=== PATIENT | male | born 1945 | race African-American/Black ===

== ENCOUNTER 2018-01-11 01:22 | Inpatient (IN) | payer MEDICARE, OTHER ==
[~2018-01-11] VITALS: Ht 172.7 cm; Wt 80.3 kg
[2018-01-11] MEDS ORDERED: METHYLPREDNISOLONE SOD SUCC 125 MG/2 ML VIAL IV STA (02:10)
[2018-01-11] MEDS ORDERED: IPRATROPIUM/ALBUTEROL 0.5-3(2.5)MG/3ML NEB HHN ONE (02:15)
[2018-01-11 02:26] LABS: BASOPHILS % 0.6 % (0.0-2.0); EOSINOPHILS % 4.6 % (0.0-5.0); HEMATOCRIT. 42.7 % (42.0-52.0); HEMOGLOBIN. 14.5 g/dL (14.0-18.0); LYMPHOCYTES % 10.9 % (20.0-50.0); MEAN CORPUSCULAR HEMOGLOBIN 35.2 pg (28.0-32.0); MEAN CORPUSCULAR VOLUME 103.7 fL (80.0-94.0); MEAN PLATELET VOLUME 7.5 fl (7.4-10.4); MONOCYTES % 5.5 % (2.0-8.0); NEUTROPHILS % 78.4 % (40.0-76.0); PLATELET 260 x1000/uL (130-400); RED BLOOD CELL COUNT 4.12 mill/uL (4.7-6.1)
[2018-01-11 02:30] LABS: CHLORIDE 102 mEq/L (98-107)
[2018-01-11 02:33] LABS: PROTHROMBIN TIME 9.6 sec (9.1-11.1)
[2018-01-11 04:28] LABS: CLARITY URINE CLEAR (CLEAR); COLOR URINE GREEN (YELLOW); KETONES URINE NEGATIVE (NEGATIVE); LEUKOCYTE ESTERASE URINE 1+ (NEGATIVE); NITRITE URINE NEGATIVE (NEGATIVE); OCCULT BLOOD URINE TRACE (NEGATIVE); PH URINE 6.5 (4.5-8.0); PROTEIN URINE 1+ (NEGATIVE); SPECIFIC GRAVITY URINE 1.016 (1.005-1.030); UROBILINOGEN URINE 0.2 E.U./dL (0.2-1.0)
[2018-01-11] MEDS ORDERED: IPRATROPIUM BROMIDE (0.02%) 0.5MG/2.5ML NEB HHN STA (15:09)
[2018-01-11] MEDS ORDERED: ALBUTEROL (0.083%) 2.5MG/3ML NEB HHN STA (15:09)
[2018-01-11 20:50] VITALS: BP 117/83
[2018-01-11] MEDS ORDERED: METF-414 PO (22:15)
[2018-01-11] MEDS ORDERED: CYAN50003 MT (22:29)
[2018-01-11] MEDS ORDERED: AMLO10TA80 PO (22:29)
[2018-01-11] MEDS ORDERED: CHOL100022 PO (22:29)
[2018-01-11] MEDS ORDERED: BUDE6HFA INH (22:29)
[2018-01-11] MEDS ORDERED: ATOR20TA65 PO (22:29)
[2018-01-11] MEDS ORDERED: TIOT18CA3 IH (22:29)
[2018-01-11] MEDS ORDERED: CHOL100062 PO (22:29)
[2018-01-11] MEDS: IPRATROPIUM/ALBUTEROL 0.5-3(2.5)MG/3ML NEB HHN SCH (23:38)
[2018-01-11] MEDS ORDERED: METHYLPREDNISOLONE SOD SUCC 125 MG/2 ML VIAL IV SCH (23:45)
[2018-01-12 00:24] VITALS: BP 131/78
[2018-01-12] MEDS: ATORVASTATIN CALCIUM 20MG TABLET PO SCH ×2 (01:30→20:49)
[2018-01-12 04:00] VITALS: BP 115/71
[2018-01-12] MEDS: IPRATROPIUM/ALBUTEROL 0.5-3(2.5)MG/3ML NEB HHN SCH ×4 (04:14→19:55)
[2018-01-12] MEDS ORDERED: DEXTROSE 50% WATER 50ML SYRINGE IV PRN ×2 (04:45→12:00)
[2018-01-12] MEDS: METHYLPREDNISOLONE SOD SUCC 40 MG/ML VIAL IV SCH ×3 (05:43→20:56)
[2018-01-12] MEDS ORDERED: METHYLPREDNISOLONE SOD SUCC 125 MG/2 ML VIAL IV SCH (06:00)
[2018-01-12] MEDS ORDERED: BLOOD SUGAR DIAGNOSTIC STRIP TEST SCH (07:20)
[2018-01-12 08:00] VITALS: BP 132/82
[2018-01-12] MEDS: BUDESONIDE 0.5MG/2ML NEB HHN SCH ×2 (08:17→19:54)
[2018-01-12] MEDS: CHOLECALCIFEROL (D3) 1000 UNIT TABLET PO SCH (08:57)
[2018-01-12] MEDS: METFORMIN HCL 500MG TABLET PO SCH ×2 (08:57→20:50)
[2018-01-12] MEDS: AMLODIPINE 10MG TABLET PO SCH (08:58)
[2018-01-12] MEDS ORDERED: MEDICATION NOT ON FORMULARY EA (Tiotropium Bromide (Spiriva) 18 MCG) IH SCH (09:00)
[2018-01-12] MEDS ORDERED: MEDICATION NOT ON FORMULARY EA (Metformin Hcl 500 MG) PO SCH (09:00)
[2018-01-12] MEDS ORDERED: MEDICATION NOT ON FORMULARY EA (Budesonide/Formoterol Fumarate (Symbicort 160/4.5 Mcg In INH SCH (09:00)
[2018-01-12 12:00] VITALS: BP 123/78
[2018-01-12] MEDS: BLOOD SUGAR DIAGNOSTIC STRIP TEST SCH ×2 (12:20→20:50)
[2018-01-12] MEDS: INSULIN LISPRO 100 UNITS/ML SUBCUT SCH ×2 (14:01→20:50)
[2018-01-12 14:31] LABS: *AMPHETAMINES SCREEN URINE NEGATIVE (NEGATIVE); *BARBITURATES SCREEN URINE NEGATIVE (NEGATIVE); *BENZODIAZEPINES SCREEN URINE NEGATIVE (NEGATIVE); *COCAINE SCREEN URINE NEGATIVE (NEGATIVE); CANNABINOID URINE SCREEN NEGATIVE (NEGATIVE); METHADONE URINE SCREEN NEGATIVE (NEGATIVE); OPIATES URINE SCREEN NEGATIVE (NEGATIVE); PHENCYCLIDINE URINE SCREEN NEGATIVE (NEGATIVE)
[2018-01-12 16:00] VITALS: BP 117/75
[2018-01-12 20:00] VITALS: BP 116/69
[2018-01-12] MEDS: ENOXAPARIN 40MG/0.4ML SYR SUBCUT SCH (20:49)
[2018-01-13] VITALS: BP 118/74
[2018-01-13] MEDS: IPRATROPIUM/ALBUTEROL 0.5-3(2.5)MG/3ML NEB HHN PRN ×2 (01:03→04:54)
[2018-01-13 04:00] VITALS: BP 126/79
[2018-01-13] MEDS: METHYLPREDNISOLONE SOD SUCC 40 MG/ML VIAL IV SCH ×2 (05:08→13:43)
[2018-01-13] MEDS: BLOOD SUGAR DIAGNOSTIC STRIP TEST SCH ×4 (06:17→20:59)
[2018-01-13] MEDS: INSULIN LISPRO 100 UNITS/ML SUBCUT SCH ×4 (07:17→20:59)
[2018-01-13 07:50] LABS: HEMATOCRIT. 35.7 % (42.0-52.0); LYMPHOCYTES % 7.1 % (20.0-50.0); MEAN CORPUSCULAR HEMOGLOBIN 34.7 pg (28.0-32.0); MEAN CORPUSCULAR VOLUME 102.7 fL (80.0-94.0); MEAN PLATELET VOLUME 7.4 fl (7.4-10.4); MONOCYTES % 3.9 % (2.0-8.0); PLATELET 233 x1000/uL (130-400); RED BLOOD CELL COUNT 3.47 mill/uL (4.7-6.1); RED CELL DISTRIBUTION WIDTH 13.5 % (11.6-14.6)
[2018-01-13] MEDS: BUDESONIDE 0.5MG/2ML NEB HHN SCH ×2 (07:52→20:08)
[2018-01-13] MEDS: IPRATROPIUM/ALBUTEROL 0.5-3(2.5)MG/3ML NEB HHN SCH ×3 (07:52→20:07)
[2018-01-13 08:00] VITALS: BP 122/75
[2018-01-13] MEDS: METFORMIN HCL 500MG TABLET PO SCH ×2 (08:25→17:12)
[2018-01-13] MEDS: CHOLECALCIFEROL (D3) 1000 UNIT TABLET PO SCH (08:26)
[2018-01-13] MEDS: AMLODIPINE 10MG TABLET PO SCH (08:26)
[2018-01-13 12:00] VITALS: BP 111/66
[2018-01-13 16:00] VITALS: BP 99/56
[2018-01-13 16:00] LABS: CHLORIDE 99 mEq/L (98-107)
[2018-01-13] MEDS: ENOXAPARIN 40MG/0.4ML SYR SUBCUT SCH (17:13)
[2018-01-13] MEDS: PREDNISONE 20MG TABLET PO SCH (18:12)
[2018-01-13 20:00] VITALS: BP 114/64
[2018-01-13] MEDS: FLUTICASONE PROPIONATE 50MCG/SPRAY BOTTLE BOTHNSTRLS SCH (20:59)
[2018-01-13] MEDS: GUAIFENESIN 600MG ER TABLET PO SCH (20:59)
[2018-01-13] MEDS: ATORVASTATIN CALCIUM 20MG TABLET PO SCH (20:59)
[2018-01-14] VITALS: BP 108/66
[2018-01-14] MEDS: IPRATROPIUM/ALBUTEROL 0.5-3(2.5)MG/3ML NEB HHN SCH ×4 (00:52→21:05)
[2018-01-14 04:00] VITALS: BP 122/73
[2018-01-14] MEDS: BLOOD SUGAR DIAGNOSTIC STRIP TEST SCH ×4 (06:22→20:26)
[2018-01-14 06:36] LABS: HEMATOCRIT. 33.7 % (42.0-52.0); HEMOGLOBIN. 11.6 g/dL (14.0-18.0); MEAN CORPUSCULAR HEMOGLOBIN 35.2 pg (28.0-32.0); MEAN CORPUSCULAR VOLUME 102.5 fL (80.0-94.0); MEAN PLATELET VOLUME 7.6 fl (7.4-10.4); PLATELET 232 x1000/uL (130-400); RED BLOOD CELL COUNT 3.29 mill/uL (4.7-6.1); RED CELL DISTRIBUTION WIDTH 13.6 % (11.6-14.6)
[2018-01-14 07:02] LABS: CHLORIDE 99 mEq/L (98-107)
[2018-01-14] MEDS: INSULIN LISPRO 100 UNITS/ML SUBCUT SCH ×4 (07:50→20:26)
[2018-01-14 08:00] VITALS: BP 107/68
[2018-01-14] MEDS: GUAIFENESIN 600MG ER TABLET PO SCH ×2 (08:26→20:26)
[2018-01-14] MEDS: AMLODIPINE 10MG TABLET PO SCH (08:26)
[2018-01-14] MEDS: METFORMIN HCL 500MG TABLET PO SCH ×2 (08:26→19:01)
[2018-01-14] MEDS: PREDNISONE 20MG TABLET PO SCH ×2 (08:26→19:01)
[2018-01-14] MEDS: CHOLECALCIFEROL (D3) 1000 UNIT TABLET PO SCH (08:26)
[2018-01-14] MEDS: FLUTICASONE PROPIONATE 50MCG/SPRAY BOTTLE BOTHNSTRLS SCH ×2 (08:27→20:26)
[2018-01-14] MEDS: BUDESONIDE 0.5MG/2ML NEB HHN SCH ×2 (08:34→21:05)
[2018-01-14] MEDS ORDERED: TERBUTALINE SULFATE 1MG/ML VIAL SUBCUT SCH (09:15)
[2018-01-14 13:01] VITALS: BP 116/61
[2018-01-14 16:05] VITALS: BP 107/69
[2018-01-14] MEDS: ENOXAPARIN 40MG/0.4ML SYR SUBCUT SCH (19:01)
[2018-01-14 19:39] LABS: PLATELET ESTIMATE NORMAL
[2018-01-14 20:00] VITALS: BP 118/72
[2018-01-14] MEDS: ATORVASTATIN CALCIUM 20MG TABLET PO SCH (20:26)
[2018-01-15] VITALS: BP 115/63
[2018-01-15] MEDS: IPRATROPIUM/ALBUTEROL 0.5-3(2.5)MG/3ML NEB HHN SCH ×4 (01:30→20:17)
[2018-01-15 04:00] VITALS: BP 119/79
[2018-01-15] MEDS: IPRATROPIUM/ALBUTEROL 0.5-3(2.5)MG/3ML NEB HHN PRN (05:54)
[2018-01-15] MEDS: BLOOD SUGAR DIAGNOSTIC STRIP TEST SCH ×4 (06:42→21:21)
[2018-01-15] MEDS: INSULIN LISPRO 100 UNITS/ML SUBCUT SCH ×4 (07:50→21:27)
[2018-01-15 08:00] VITALS: BP 118/68
[2018-01-15] MEDS: BUDESONIDE 0.5MG/2ML NEB HHN SCH (09:43)
[2018-01-15] MEDS: AMLODIPINE 10MG TABLET PO SCH (09:49)
[2018-01-15] MEDS: GUAIFENESIN 600MG ER TABLET PO SCH ×2 (09:49→21:26)
[2018-01-15] MEDS: METFORMIN HCL 500MG TABLET PO SCH ×2 (09:50→18:45)
[2018-01-15] MEDS: FLUTICASONE PROPIONATE 50MCG/SPRAY BOTTLE BOTHNSTRLS SCH ×2 (09:50→21:26)
[2018-01-15] MEDS: PREDNISONE 20MG TABLET PO SCH ×2 (09:50→18:45)
[2018-01-15] MEDS: CHOLECALCIFEROL (D3) 1000 UNIT TABLET PO SCH (09:54)
[2018-01-15 12:00] VITALS: BP 115/66
[2018-01-15] MEDS: LEVOFLOXACIN 250MG TABLET PO SCH (14:01)
[2018-01-15 16:00] VITALS: BP 100/55
[2018-01-15] MEDS: ENOXAPARIN 40MG/0.4ML SYR SUBCUT SCH (18:45)
[2018-01-15 20:00] VITALS: BP 116/60
[2018-01-15] MEDS: ATORVASTATIN CALCIUM 20MG TABLET PO SCH (21:26)
[2018-01-15] MEDS ORDERED: MAGNESIUM 1 G PREMIX 100 ML IV NR (21:30)
[2018-01-16] VITALS: BP 110/63
[2018-01-16] MEDS: IPRATROPIUM/ALBUTEROL 0.5-3(2.5)MG/3ML NEB HHN SCH ×2 (00:54→07:21)
[2018-01-16 04:00] VITALS: BP 115/58
[2018-01-16] MEDS: IPRATROPIUM/ALBUTEROL 0.5-3(2.5)MG/3ML NEB HHN PRN (05:44)
[2018-01-16] MEDS: BLOOD SUGAR DIAGNOSTIC STRIP TEST SCH ×2 (07:20→12:14)
[2018-01-16] MEDS: INSULIN LISPRO 100 UNITS/ML SUBCUT SCH ×2 (07:50→12:15)
[2018-01-16 08:00] VITALS: BP 116/66
[2018-01-16] MEDS ORDERED: CYANOCOBALAMIN 1000MCG TABLET PO SCH (09:00)
[2018-01-16] MEDS: PREDNISONE 20MG TABLET PO SCH (10:16)
[2018-01-16] MEDS: METFORMIN HCL 500MG TABLET PO SCH (10:17)
[2018-01-16] MEDS: GUAIFENESIN 600MG ER TABLET PO SCH (10:17)
[2018-01-16] MEDS: LEVOFLOXACIN 250MG TABLET PO SCH (10:17)
[2018-01-16] MEDS: AMLODIPINE 10MG TABLET PO SCH (10:18)
[2018-01-16] MEDS: CHOLECALCIFEROL (D3) 1000 UNIT TABLET PO SCH (10:18)
[2018-01-16] MEDS: FLUTICASONE PROPIONATE 50MCG/SPRAY BOTTLE BOTHNSTRLS SCH (10:20)
[2018-01-16 13:12] VITALS: BP 115/74
== END 2018-01-16 14:05 | disposition home or self-care (01) | DRG 189 ==
LOC: ER 01:22 → 6WST 04:27 → EDBEDREQ 04:29 → ENRESERV 19:54
PROVIDERS: ADMIT Internal Medicine; ATTEND Internal Medicine
DX: J96.00 Acute respiratory failure, unspecified whether with hypoxia or hypercapnia (principal); J44.1 Chronic obstructive pulmonary disease with (acute) exacerbation; N39.0 Urinary tract infection, site not specified; I10 Essential (primary) hypertension; L89.310 Pressure ulcer of right buttock, unstageable; L89.150 Pressure ulcer of sacral region, unstageable; E78.5 Hyperlipidemia, unspecified; J00 Acute nasopharyngitis [common cold]; E11.40 Type 2 diabetes mellitus with diabetic neuropathy, unspecified; E78.00 Pure hypercholesterolemia, unspecified; B96.1 Klebsiella pneumoniae [K. pneumoniae] as the cause of diseases classified elsewhere; Z79.51 Long term (current) use of inhaled steroids; Z79.84 Long term (current) use of oral hypoglycemic drugs; Z87.891 Personal history of nicotine dependence; Z88.2 Allergy status to sulfonamides
CPT/HCPCS: 36415; 71045; 80048; 80305; 82962; 83880; 84134; 84484; 87077; 87186; 87804; 93005; 94640; 96374; 99285; A6261; J1650; J1815; J2920; J2930; J3105; J3475; J7040; J7512; J7611; J7620; J7626

== ENCOUNTER 2018-01-23 00:41 | Emergency (ER) | payer MEDICARE, OTHER ==
[~2018-01-23] VITALS: Ht 172.7 cm; Wt 57.0 kg
[~2018-01-23 00:41] MED LIST: AMLO10TA80 PO; ATOR20TA65 PO; BUDE6HFA INH; CHOL100022 PO; CYAN50003 MT; METF-414 PO; TIOT18CA3 IH
[2018-01-23] MEDS ORDERED: ALBUTEROL (0.083%) 2.5MG/3ML NEB HHN STA (01:34)
[2018-01-23] MEDS ORDERED: IPRATROPIUM BROMIDE (0.02%) 0.5MG/2.5ML NEB HHN STA (01:34)
[2018-01-23] MEDS ORDERED: MAGNESIUM 2 G PREMIX 50 ML IV ONE (01:45)
[2018-01-23 02:21] LABS: HEMATOCRIT 35.5 % (42.0-52.0); HEMOGLOBIN 12.1 g/dL (14.0-18.0); MEAN CORPUSCULAR HEMOGLOBIN 35.1 pg (28.0-32.0); MEAN CORPUSCULAR VOLUME 103.2 fL (80.0-94.0); PLATELET 222 x1000/uL (130-400); RED BLOOD CELL COUNT 3.44 mill/uL (4.7-6.1); RED CELL DISTRIBUTION WIDTH 14.2 % (11.6-14.6)
[2018-01-23 02:26] LABS: CHLORIDE 103 mEq/L (98-107)
[2018-01-23 02:32] LABS: D-DIMER 0.98 mg/L FEU (<0.50); PARTIAL THROMBOPLASTIN TIME 23.6 sec (23.4-31.0)
[2018-01-23 06:18] VITALS: BP 112/75
[2018-01-23] MEDS ORDERED: IOHEXOL-350 100 ML BOTTLE ONE (06:35)
== END 2018-01-23 06:24 | disposition home or self-care (01) ==
LOC: EDBD → ER 02:26
DX: J44.1 Chronic obstructive pulmonary disease with (acute) exacerbation (principal); E11.9 Type 2 diabetes mellitus without complications; E78.00 Pure hypercholesterolemia, unspecified; I10 Essential (primary) hypertension; N39.0 Urinary tract infection, site not specified; Z87.891 Personal history of nicotine dependence; Z88.2 Allergy status to sulfonamides; Z79.899 Other long term (current) drug therapy
CPT/HCPCS: 36415; 71275; 80053; 84484; 85027; 85379; 85610; 85730; 94640; 96365; 96366; 99284; J3475; Q9967; J7611

== ENCOUNTER 2018-02-08 05:54 | Inpatient (IN) | payer MEDICARE, OTHER ==
[~2018-02-08] VITALS: Ht 167.6 cm; Wt 81.6 kg
[2018-02-08] MEDS ORDERED: METHYLPREDNISOLONE SOD SUCC 125 MG/2 ML VIAL IV STA (07:01)
[2018-02-08] MEDS ORDERED: IPRATROPIUM/ALBUTEROL 0.5-3(2.5)MG/3ML NEB HHN ONE (07:15)
[2018-02-08 07:55] LABS: BASOPHILS % 0.4 % (0.0-2.0); CHLORIDE 103 mEq/L (98-107); EOSINOPHILS % 0.2 % (0.0-5.0); HEMATOCRIT. 39.6 % (42.0-52.0); HEMOGLOBIN. 13.2 g/dL (14.0-18.0); LYMPHOCYTES % 16.5 % (20.0-50.0); MEAN CORPUSCULAR HEMOGLOBIN 34.7 pg (28.0-32.0); MONOCYTES % 12.3 % (2.0-8.0); NEUTROPHILS % 70.6 % (40.0-76.0); PLATELET 238 x1000/uL (130-400); RED BLOOD CELL COUNT 3.81 mill/uL (4.7-6.1)
[2018-02-08 07:58] LABS: PARTIAL THROMBOPLASTIN TIME 26.3 sec (23.4-31.0); PROTHROMBIN TIME 9.9 sec (9.1-11.1)
[2018-02-08 08:52] LABS: BG BASE EXCESS 1.4 mmol/L (-2.0-2.0); BG CARBOXYHEMOGLOBIN 0.9 % (0.5-1.5); BG DEOXYHEMOGLOBIN 3.1 % (0.0-5.0); BG FRACTION INSPIRED OXYGEN 28; BG HCO3 ACT 27.2 mmol/L (22.0-26.0); BG METHEMOGLOBIN 0.3 % (0.0-1.5); BG OXYGEN SATURATION 96.9 % (92.0-98.5); BG OXYHEMOGLOBIN 95.7 % (94.0-97.0); BG PCO2 47.8 mmHg (35.0-45.0); BG PH 7.373 (7.350-7.450); BG PO2 98.9 mmHg (75.0-100.0); BG SAMPLE SITE RIGHT BRACHIAL; BG TOTAL HEMOGLOBIN 13.3 g/dL (12.0-18.0); BG VENT MODE NASAL CANNULA
[2018-02-08] MEDS ORDERED: CLONIDINE 0.1MG TABLET PO PRN (10:30)
[2018-02-08] MEDS ORDERED: LORAZEPAM 2MG/ML CPJ IV PRN (10:30)
[2018-02-08] MEDS ORDERED: ACETAMINOPHEN 325MG TABLET PO PRN (10:30)
[2018-02-08] MEDS ORDERED: MORPHINE SULFATE 2 MG/ML CPJ (NOT FOR IM USE) IV PRN (10:30)
[2018-02-08] MEDS ORDERED: DOCUSATE SODIUM 100MG CAPSULE PO PRN (10:30)
[2018-02-08] MEDS ORDERED: MAGNESIUM/ALUMINUM HYDROXIDE/SIMETHICONE 30ML UDC PO PRN (10:30)
[2018-02-08] MEDS ORDERED: NA PHOS,M-B/NA PHOS,DI-BA ENEMA 118ML PR PRN (10:30)
[2018-02-08] MEDS ORDERED: ONDANSETRON HCL 4MG/2ML INJ IV PRN (10:30)
[2018-02-08] MEDS ORDERED: DIPHENHYDRAMINE 50MG/ML VIAL IV PRN (10:30)
[2018-02-08 14:00] VITALS: BP 128/83
[2018-02-08] MEDS ORDERED: MORPHINE SULFATE 10MG/5ML ORAL SOLN UDC PO PRN (14:00)
[2018-02-08] MEDS: METHYLPREDNISOLONE SOD SUCC 125 MG/2 ML VIAL IV SCH ×2 (14:34→20:03)
[2018-02-08] MEDS: ASPIRIN 81MG EC TABLET PO SCH (14:34)
[2018-02-08] MEDS: ENOXAPARIN 40MG/0.4ML SYR SUBCUT SCH (14:35)
[2018-02-08 14:56] VITALS: BP 128/83
[2018-02-08] MEDS ORDERED: LEVOFLOXACIN 500MG PREMIX 100 ML IV SCH (15:00)
[2018-02-08] MEDS ORDERED: DEXTROSE 50% WATER 50ML SYRINGE IV PRN (15:45)
[2018-02-08 16:00] VITALS: BP 118/78
[2018-02-08] MEDS ORDERED: INFLUENZA VIRUS VACCINE(AFLURIA) 0.5ML SYR IM ONE (16:15)
[2018-02-08] MEDS: IPRATROPIUM/ALBUTEROL 0.5-3(2.5)MG/3ML NEB INH PRN (17:07)
[2018-02-08] MEDS: BLOOD SUGAR DIAGNOSTIC STRIP TEST SCH ×2 (17:09→20:35)
[2018-02-08] MEDS: INSULIN LISPRO 100 UNITS/ML SUBCUT SCH ×2 (17:20→21:18)
[2018-02-08 17:59] LABS: CHLORIDE 100 mEq/L (98-107)
[2018-02-08 20:00] VITALS: BP 115/69
[2018-02-08] MEDS: HYDROCODONE/ACETAMINOPHEN 5/325MG TABLET PO PRN (20:04)
[2018-02-08] MEDS: ATORVASTATIN CALCIUM 20MG TABLET PO SCH (20:05)
[2018-02-09] VITALS: BP 126/82
[2018-02-09] MEDS: IPRATROPIUM/ALBUTEROL 0.5-3(2.5)MG/3ML NEB INH PRN ×3 (00:54→12:07)
[2018-02-09] MEDS: METHYLPREDNISOLONE SOD SUCC 125 MG/2 ML VIAL IV SCH ×2 (02:26→09:44)
[2018-02-09 04:00] VITALS: BP 127/86
[2018-02-09] MEDS: BLOOD SUGAR DIAGNOSTIC STRIP TEST SCH ×4 (05:56→20:07)
[2018-02-09 05:58] LABS: BASOPHILS % 0.1 % (0.0-2.0); HEMATOCRIT. 36.1 % (42.0-52.0); HEMOGLOBIN. 12.1 g/dL (14.0-18.0); LYMPHOCYTES % 7.8 % (20.0-50.0); MEAN CORPUSCULAR HEMOGLOBIN 34.8 pg (28.0-32.0); MEAN CORPUSCULAR VOLUME 103.8 fL (80.0-94.0); MEAN PLATELET VOLUME 7.6 fl (7.4-10.4); MONOCYTES % 3.5 % (2.0-8.0); NEUTROPHILS % 88.6 % (40.0-76.0); PLATELET 240 x1000/uL (130-400); RED BLOOD CELL COUNT 3.47 mill/uL (4.7-6.1); RED CELL DISTRIBUTION WIDTH 13.5 % (11.6-14.6)
[2018-02-09 06:24] LABS: CHLORIDE 98 mEq/L (98-107)
[2018-02-09 06:36] LABS: HDL CHOLESTEROL 46 mg/dL (40-59); T4 FREE 1.08 ng/dL (0.76-1.46)
[2018-02-09 06:37] LABS: LDL CHOLESTEROL 81 mg/dL (5-100)
[2018-02-09] MEDS: INSULIN LISPRO 100 UNITS/ML SUBCUT SCH ×4 (06:53→20:18)
[2018-02-09 08:00] VITALS: BP 122/78
[2018-02-09] MEDS: ENOXAPARIN 40MG/0.4ML SYR SUBCUT SCH (09:44)
[2018-02-09] MEDS: ASPIRIN 81MG EC TABLET PO SCH (09:44)
[2018-02-09 12:00] VITALS: BP 136/82
[2018-02-09] MEDS ORDERED: ALBUTEROL (0.5%) 2.5MG/0.5ML NEB HHN PRN (12:45)
[2018-02-09] MEDS: FLUTICASONE PROPIONATE 50MCG/SPRAY BOTTLE BOTHNSTRLS SCH (14:34)
[2018-02-09] MEDS: ALBUTEROL (0.083%) 2.5MG/3ML NEB HHN SCH ×3 (15:03→21:10)
[2018-02-09] MEDS: ACETYLCYSTEINE 100MG/ML 10% VIAL 4ML INH SCH (15:03)
[2018-02-09 16:00] VITALS: BP 107/73
[2018-02-09 16:48] LABS: CREATINE KINASE 189 IU/L (39-308)
[2018-02-09] MEDS: THEOPHYLLINE ANHYDROUS 80 MG/15 ML 120ML PO SCH (17:22)
[2018-02-09] MEDS: LEVOFLOXACIN 500MG PREMIX 100 ML IV SCH (17:22)
[2018-02-09] MEDS: METHYLPREDNISOLONE SOD SUCC 40 MG/ML VIAL IV SCH (17:22)
[2018-02-09 20:00] VITALS: BP 129/82
[2018-02-09] MEDS: ATORVASTATIN CALCIUM 20MG TABLET PO SCH (20:18)
[2018-02-09] MEDS: OXYMETAZOLINE HCL NASAL SPRAY 15ML BOTHNSTRLS SCH (20:18)
[2018-02-10] VITALS (7 sets, daily range): BP systolic 110–137; BP diastolic 68–86
[2018-02-10] MEDS: HYDROCODONE/ACETAMINOPHEN 5/325MG TABLET PO PRN ×2 (00:16→21:18)
[2018-02-10] MEDS: THEOPHYLLINE ANHYDROUS 80 MG/15 ML 120ML PO SCH ×4 (00:17→17:10)
[2018-02-10 00:40] LABS: CREATINE KINASE 188 IU/L (39-308)
[2018-02-10 00:41] LABS: CREATINE KINASE MB FRACTION 5.7 ng/mL (0.5-3.6)
[2018-02-10] MEDS: ACETYLCYSTEINE 100MG/ML 10% VIAL 4ML INH SCH ×3 (00:47→15:09)
[2018-02-10] MEDS: ALBUTEROL (0.083%) 2.5MG/3ML NEB HHN SCH ×5 (00:47→20:49)
[2018-02-10] MEDS: METHYLPREDNISOLONE SOD SUCC 40 MG/ML VIAL IV SCH ×3 (01:54→17:10)
[2018-02-10] MEDS: BLOOD SUGAR DIAGNOSTIC STRIP TEST SCH ×4 (05:50→21:12)
[2018-02-10] MEDS: INSULIN LISPRO 100 UNITS/ML SUBCUT SCH ×4 (05:53→21:14)
[2018-02-10 07:59] LABS: CREATINE KINASE 188 IU/L (39-308)
[2018-02-10 08:00] LABS: CREATINE KINASE MB FRACTION 5.7 ng/mL (0.5-3.6)
[2018-02-10] MEDS ORDERED: MAGNESIUM 2 G PREMIX 50 ML IV SCH (08:30)
[2018-02-10] MEDS: FLUTICASONE PROPIONATE 50MCG/SPRAY BOTTLE BOTHNSTRLS SCH (08:50)
[2018-02-10] MEDS: ENOXAPARIN 40MG/0.4ML SYR SUBCUT SCH (09:19)
[2018-02-10] MEDS: ASPIRIN 81MG EC TABLET PO SCH (09:19)
[2018-02-10] MEDS: OXYMETAZOLINE HCL NASAL SPRAY 15ML BOTHNSTRLS SCH ×2 (09:19→21:17)
[2018-02-10] MEDS: LEVOFLOXACIN 500MG PREMIX 100 ML IV SCH (17:10)
[2018-02-10] MEDS: CARVEDILOL 3.125 MG TABLET PO SCH (21:12)
[2018-02-10] MEDS: ATORVASTATIN CALCIUM 20MG TABLET PO SCH (21:12)
[2018-02-11 00:43] VITALS: BP 114/85
[2018-02-11] MEDS: ALBUTEROL (0.083%) 2.5MG/3ML NEB HHN SCH ×6 (00:52→20:52)
[2018-02-11] MEDS: ACETYLCYSTEINE 100MG/ML 10% VIAL 4ML INH SCH ×3 (00:52→15:26)
[2018-02-11] MEDS: THEOPHYLLINE ANHYDROUS 80 MG/15 ML 120ML PO SCH ×4 (01:02→17:12)
[2018-02-11] MEDS: METHYLPREDNISOLONE SOD SUCC 40 MG/ML VIAL IV SCH ×3 (01:02→17:12)
[2018-02-11 04:00] VITALS: BP 102/75
[2018-02-11] MEDS: BLOOD SUGAR DIAGNOSTIC STRIP TEST SCH ×4 (05:59→20:30)
[2018-02-11] MEDS: INSULIN LISPRO 100 UNITS/ML SUBCUT SCH ×4 (05:59→21:06)
[2018-02-11] MEDS: FLUTICASONE PROPIONATE 50MCG/SPRAY BOTTLE BOTHNSTRLS SCH (09:00)
[2018-02-11] MEDS: ENOXAPARIN 40MG/0.4ML SYR SUBCUT SCH (09:00)
[2018-02-11] MEDS: OXYMETAZOLINE HCL NASAL SPRAY 15ML BOTHNSTRLS SCH ×2 (09:13→21:10)
[2018-02-11] MEDS: ASPIRIN 81MG EC TABLET PO SCH (09:14)
[2018-02-11] MEDS: CARVEDILOL 3.125 MG TABLET PO SCH ×2 (09:15→20:34)
[2018-02-11] MEDS: LOSARTAN POTASSIUM 50 MG TABLET PO SCH (09:15)
[2018-02-11] MEDS: HYDROCODONE/ACETAMINOPHEN 5/325MG TABLET PO PRN ×2 (11:49→17:43)
[2018-02-11] MEDS: GUAIFENESIN 200MG/10ML SUGAR FREE UDC PO PRN ×2 (11:57→17:43)
[2018-02-11 11:59] VITALS: BP 112/68
[2018-02-11 15:40] VITALS: BP 90/56
[2018-02-11] MEDS ORDERED: REGADENOSON 0.4 MG/5 ML IV ONE (16:30)
[2018-02-11] MEDS: LEVOFLOXACIN 500MG PREMIX 100 ML IV SCH (17:13)
[2018-02-11 20:00] VITALS: BP 102/54
[2018-02-11] MEDS: ATORVASTATIN CALCIUM 20MG TABLET PO SCH (20:33)
[2018-02-12] VITALS: BP 113/76
[2018-02-12] MEDS: THEOPHYLLINE ANHYDROUS 80 MG/15 ML 120ML PO SCH ×4 (00:19→16:34)
[2018-02-12] MEDS: GUAIFENESIN 200MG/10ML SUGAR FREE UDC PO PRN ×2 (00:24→12:48)
[2018-02-12] MEDS: ALBUTEROL (0.083%) 2.5MG/3ML NEB HHN SCH ×6 (00:58→20:15)
[2018-02-12] MEDS: ACETYLCYSTEINE 100MG/ML 10% VIAL 4ML INH SCH (00:58)
[2018-02-12] MEDS: METHYLPREDNISOLONE SOD SUCC 40 MG/ML VIAL IV SCH (02:54)
[2018-02-12 04:00] VITALS: BP 111/70
[2018-02-12] MEDS: BLOOD SUGAR DIAGNOSTIC STRIP TEST SCH ×4 (07:22→21:25)
[2018-02-12] MEDS: INSULIN LISPRO 100 UNITS/ML SUBCUT SCH ×4 (07:23→21:25)
[2018-02-12 08:00] VITALS: BP 115/79
[2018-02-12] MEDS: LOSARTAN POTASSIUM 50 MG TABLET PO SCH ×2 (09:00→09:17)
[2018-02-12] MEDS: ASPIRIN 81MG EC TABLET PO SCH ×2 (09:00→12:48)
[2018-02-12] MEDS: CARVEDILOL 3.125 MG TABLET PO SCH ×2 (09:00→20:42)
[2018-02-12] MEDS: FLUTICASONE PROPIONATE 50MCG/SPRAY BOTTLE BOTHNSTRLS SCH (09:20)
[2018-02-12] MEDS: ENOXAPARIN 40MG/0.4ML SYR SUBCUT SCH (09:21)
[2018-02-12] MEDS: PREDNISONE 20MG TABLET PO SCH ×3 (09:30→16:34)
[2018-02-12] MEDS: GUAIFENESIN 600MG ER TABLET PO SCH ×3 (09:30→21:13)
[2018-02-12] MEDS ORDERED: REGADENOSON 0.4 MG/5 ML IV ONE (10:48)
[2018-02-12 12:30] VITALS: BP 102/71
[2018-02-12] MEDS: OXYMETAZOLINE HCL NASAL SPRAY 15ML BOTHNSTRLS SCH ×2 (12:57→21:12)
[2018-02-12] MEDS: LEVOFLOXACIN 500MG PREMIX 100 ML IV SCH (16:34)
[2018-02-12 20:00] VITALS: BP 114/79
[2018-02-12] MEDS: ATORVASTATIN CALCIUM 20MG TABLET PO SCH (21:13)
[2018-02-13] VITALS: BP 112/73
[2018-02-13] MEDS: ALBUTEROL (0.083%) 2.5MG/3ML NEB HHN SCH ×4 (00:02→12:38)
[2018-02-13] MEDS: THEOPHYLLINE ANHYDROUS 80 MG/15 ML 120ML PO SCH ×3 (00:45→13:04)
[2018-02-13] MEDS: GUAIFENESIN 200MG/10ML SUGAR FREE UDC PO PRN ×2 (01:33→08:51)
[2018-02-13 04:00] VITALS: BP 126/88
[2018-02-13 05:45] LABS: HEMATOCRIT. 41.4 % (42.0-52.0); HEMOGLOBIN. 13.9 g/dL (14.0-18.0); MEAN CORPUSCULAR HEMOGLOBIN 34.4 pg (28.0-32.0); MEAN CORPUSCULAR VOLUME 102.7 fL (80.0-94.0); MEAN PLATELET VOLUME 7.4 fl (7.4-10.4); PLATELET 313 x1000/uL (130-400); RED BLOOD CELL COUNT 4.03 mill/uL (4.7-6.1); RED CELL DISTRIBUTION WIDTH 13.3 % (11.6-14.6)
[2018-02-13 05:48] LABS: CHLORIDE 95 mEq/L (98-107)
[2018-02-13] MEDS: INSULIN LISPRO 100 UNITS/ML SUBCUT SCH ×2 (05:51→13:04)
[2018-02-13] MEDS: BLOOD SUGAR DIAGNOSTIC STRIP TEST SCH ×2 (05:51→11:58)
[2018-02-13 07:50] VITALS: BP 120/85
[2018-02-13] MEDS: OXYMETAZOLINE HCL NASAL SPRAY 15ML BOTHNSTRLS SCH (08:51)
[2018-02-13] MEDS: ENOXAPARIN 40MG/0.4ML SYR SUBCUT SCH (08:51)
[2018-02-13] MEDS: PREDNISONE 20MG TABLET PO SCH (08:52)
[2018-02-13] MEDS: CARVEDILOL 3.125 MG TABLET PO SCH (08:52)
[2018-02-13] MEDS: LOSARTAN POTASSIUM 50 MG TABLET PO SCH (08:52)
[2018-02-13] MEDS: ASPIRIN 81MG EC TABLET PO SCH (08:52)
[2018-02-13] MEDS: GUAIFENESIN 600MG ER TABLET PO SCH (08:52)
[2018-02-13 12:00] VITALS: BP 104/68
[2018-02-13 13:27] VITALS: BP 104/68
[2018-02-13 13:32] LABS: ATYPICAL LYMPHOCYTES 1
== END 2018-02-13 15:00 | disposition home or self-care (01) | DRG 177 ==
LOC: ER 05:54 → 8WST 07:06 → EDBEDREQ 12:28 → ENRESERV 12:35
PROVIDERS: ADMIT Internal Medicine; ATTEND Internal Medicine
DX: J69.0 Pneumonitis due to inhalation of food and vomit (principal); J96.00 Acute respiratory failure, unspecified whether with hypoxia or hypercapnia; I50.23 Acute on chronic systolic (congestive) heart failure; J44.0 Chronic obstructive pulmonary disease with (acute) lower respiratory infection; R65.10 Systemic inflammatory response syndrome (SIRS) of non-infectious origin without acute organ dysfunction; E44.1 Mild protein-calorie malnutrition; E87.2 Acidosis; I42.9 Cardiomyopathy, unspecified; J44.1 Chronic obstructive pulmonary disease with (acute) exacerbation; I11.0 Hypertensive heart disease with heart failure; E11.9 Type 2 diabetes mellitus without complications; J20.9 Acute bronchitis, unspecified; E78.5 Hyperlipidemia, unspecified; F17.200 Nicotine dependence, unspecified, uncomplicated; I25.10 Atherosclerotic heart disease of native coronary artery without angina pectoris; Z68.29 Body mass index [BMI] 29.0-29.9, adult; Z88.1 Allergy status to other antibiotic agents
CPT/HCPCS: 36415; 36600; 71045; 78452; 80048; 80061; 82375; 82550; 82553; 82805; 82962; 83036; 83880; 84439; 84443; 84484; 85379; 93005; 93017; 93306; 93970; 94640; 96374; 99291; A6261; A9500; J1200; J1650; J1815; J1956; J2785; J2920; J2930; J3475; J7512; J7608; J7611; J7620

== ENCOUNTER 2024-05-14 17:28 | Inpatient (IN) | payer MEDICARE ==
[~2024-05-14] VITALS: Ht 167.6 cm; Wt 57.6 kg
[~2024-05-14 17:28] MED LIST changes: -CYAN50003 MT; +CYAN50007 MT; +LEVO-65 MT; +P20 MT; +PRED5TAB48 PO
[2024-05-14 18:17] LABS: BASOPHILS % 0.4 % (0.0-2.0); DIFFERENTIAL COMMENT 0; EOSINOPHILS % 0.1 % (0.0-5.0); HEMATOCRIT. 36.9 % (42.0-52.0); HEMOGLOBIN. 11.7 g/dL (14.0-18.0); LYMPHOCYTES % 7.9 % (20.0-50.0); MEAN CORPUSCULAR HEMOGLOBIN 32.2 pg (28.0-32.0); MEAN CORPUSCULAR HGB CONC 31.7 g/dL (31.0-37.0); MEAN CORPUSCULAR VOLUME 101.6 fL (80.0-94.0); MEAN PLATELET VOLUME 7.6 fl (7.4-10.4); NEUTROPHILS % 86.6 % (40.0-76.0); PLATELET 288 x1000/uL (130-400); RED BLOOD CELL COUNT 3.63 mill/uL (4.7-6.1); RED CELL DISTRIBUTION WIDTH 16.3 % (11.6-14.6); WHITE BLOOD COUNT 8.8 x1000/uL (4.5-11.0)
[2024-05-14 18:23] LABS: CHLORIDE 92 mEq/L (98-107); POTASSIUM 5.2 mEq/L (3.5-5.1); SODIUM 127 mEq/L (136-145)
[2024-05-14 18:24] LABS: CARBON DIOXIDE 24 mEq/L (21-32)
[2024-05-14 18:25] LABS: CALCIUM 9.7 mg/dL (8.7-10.4)
[2024-05-14 18:29] LABS: CREATININE 1.1 mg/dL (0.6-1.3)
[2024-05-14 18:30] LABS: UREA NITROGEN BLOOD 12 mg/dL (9-23)
[2024-05-14 18:31] LABS: TROPONIN I HIGH SENSITIVITY 14 ng/L (3.0-53)
[2024-05-14 18:45] LABS: GLUCOSE 419 mg/dL (70-105)
[2024-05-14] MEDS: METOPROLOL TARTRATE 50MG TABLET PO ONE (19:23)
[2024-05-14] MEDS: METOPROLOL TARTRATE 5MG/5ML VIAL IV ONE (19:23)
[2024-05-14] MEDS: ENOXAPARIN 80MG/0.8ML SYR SUBCUT ONE (23:56)
[2024-05-15] VITALS (11 sets, daily range): BP systolic 75–112; BP diastolic 54–85; PULSE 78–108; RESP 18–26; TEMP 36.6–36.9; O2SAT 96–100
[2024-05-15] MEDS: BLOOD SUGAR DIAGNOSTIC STRIP TEST SCH (07:30)
[2024-05-15] MEDS ORDERED: IPRATROPIUM/ALBUTEROL 0.5-3(2.5)MG/3ML NEB HHN SCH (08:00)
[2024-05-15] MEDS: INSULIN LISPRO 100 UNITS/ML SUBCUT SCH (08:45)
[2024-05-15] MEDS: METFORMIN HCL 500MG TABLET PO SCH (08:46)
[2024-05-15] MEDS: PREDNISONE 20MG TABLET PO SCH (08:46)
[2024-05-15] MEDS ORDERED: NALOXONE HCL 0.4MG/ML VIAL IV PRN (10:00)
[2024-05-15] MEDS: SODIUM CHLORIDE 0.9% 1,000 ML IV SCH (10:20)
[2024-05-15] MEDS: TRAMADOL 50MG TABLET PO PRN (10:25)
[2024-05-15] MEDS: INSULIN GLARGINE 100 UNITS/ML SUBCUT SCH (10:29)
[2024-05-15] MEDS: AMIODARONE 200MG TABLET PO SCH (11:00)
[2024-05-15 11:27] LABS: BASOPHILS % 0.3 % (0.0-2.0); EOSINOPHILS % 0.7 % (0.0-5.0); HEMATOCRIT. 35.4 % (42.0-52.0); HEMOGLOBIN. 11.3 g/dL (14.0-18.0); LYMPHOCYTES % 10.4 % (20.0-50.0); MEAN CORPUSCULAR HEMOGLOBIN 31.9 pg (28.0-32.0); MEAN CORPUSCULAR HGB CONC 31.9 g/dL (31.0-37.0); MEAN PLATELET VOLUME 7.2 fl (7.4-10.4); MONOCYTES % 5.5 % (2.0-8.0); NEUTROPHILS % 83.1 % (40.0-76.0); PLATELET 276 x1000/uL (130-400); RED BLOOD CELL COUNT 3.54 mill/uL (4.7-6.1); RED CELL DISTRIBUTION WIDTH 15.9 % (11.6-14.6); WHITE BLOOD COUNT 7.7 x1000/uL (4.5-11.0)
[2024-05-15 11:46] LABS: CHLORIDE 100 mEq/L (98-107); POTASSIUM 3.9 mEq/L (3.5-5.1); SODIUM 136 mEq/L (136-145)
[2024-05-15 11:47] LABS: CARBON DIOXIDE 28 mEq/L (21-32)
[2024-05-15 11:48] LABS: CALCIUM 9.4 mg/dL (8.7-10.4)
[2024-05-15 11:52] LABS: CREATININE 0.9 mg/dL (0.6-1.3)
[2024-05-15 11:53] LABS: LDL CHOLESTEROL 74 mg/dL (5-100); TRIGLYCERIDE 105 mg/dL (0-150); UREA NITROGEN BLOOD 11 mg/dL (9-23)
[2024-05-15 11:55] LABS: CHOLESTEROL 142 mg/dL (<200); HDL CHOLESTEROL 38 mg/dL (>55)
[2024-05-15] MEDS: DIGOXIN 500MCG/2ML AMP IV NR (12:56)
[2024-05-15 12:57] LABS: GLUCOSE 70 mg/dL (70-105)
[2024-05-15] MEDS: ENOXAPARIN 60MG/0.6ML SYR SUBCUT SCH (12:59)
[2024-05-15] MEDS: IPRATROPIUM BROMIDE (0.02%) 0.5MG/2.5ML NEB HHN SCH (14:57)
[2024-05-15 17:03] LABS: CLARITY URINE TURBID (CLEAR); COLOR URINE YELLOW (YELLOW); GLUCOSE URINE 3+ (NEGATIVE); KETONES URINE NEGATIVE (NEGATIVE); LEUKOCYTE ESTERASE URINE TRACE (NEGATIVE); NITRITE URINE NEGATIVE (NEGATIVE); OCCULT BLOOD URINE TRACE (NEGATIVE); PROTEIN URINE 1+ (NEGATIVE); SPECIFIC GRAVITY URINE 1.027 (1.005-1.030)
[2024-05-15 18:17] LABS: BACTERIA URINE 3+; SQUAMOUS EPITHELIAL CELL URINE FEW /lpf (RARE/1+)
[2024-05-15 18:18] LABS: AMORPHOUS SEDIMENT URINE 2+ /lpf
[2024-05-16] VITALS (11 sets, daily range): BP systolic 91–127; BP diastolic 50–84; PULSE 64–91; RESP 16–20; TEMP 35.8–36.9; O2SAT 96–100
[2024-05-16 06:36] LABS: CALCIUM 9.1 mg/dL (8.7-10.4); CARBON DIOXIDE 27 mEq/L (21-32); CHLORIDE 100 mEq/L (98-107); POTASSIUM 3.7 mEq/L (3.5-5.1); SODIUM 133 mEq/L (136-145)
[2024-05-16 06:41] LABS: CREATININE 0.8 mg/dL (0.6-1.3); GLUCOSE 54 mg/dL (70-105); UREA NITROGEN BLOOD 10 mg/dL (9-23)
[2024-05-16 06:45] LABS: TROPONIN I HIGH SENSITIVITY 12 ng/L (3.0-53)
[2024-05-16] MEDS: DEXTROSE 50% WATER 50ML SYRINGE IV PRN (06:49)
[2024-05-16] MEDS: HYDROCODONE/ACETAMINOPHEN 5/325MG TABLET PO PRN (13:30)
[2024-05-16 21:21] LABS: BASOPHILS % 0.2 % (0.0-2.0); DIFFERENTIAL COMMENT 0; EOSINOPHILS % 0.5 % (0.0-5.0); HEMATOCRIT. 37.1 % (42.0-52.0); HEMOGLOBIN. 11.9 g/dL (14.0-18.0); LYMPHOCYTES % 11.9 % (20.0-50.0); MEAN CORPUSCULAR HEMOGLOBIN 32.5 pg (28.0-32.0); MEAN CORPUSCULAR HGB CONC 32.1 g/dL (31.0-37.0); MEAN PLATELET VOLUME 7.5 fl (7.4-10.4); MONOCYTES % 5.5 % (2.0-8.0); NEUTROPHILS % 81.9 % (40.0-76.0); PLATELET 305 x1000/uL (130-400); RED BLOOD CELL COUNT 3.67 mill/uL (4.7-6.1); RED CELL DISTRIBUTION WIDTH 15.9 % (11.6-14.6); WHITE BLOOD COUNT 9.9 x1000/uL (4.5-11.0)
[2024-05-17] VITALS (8 sets, daily range): BP systolic 104–147; BP diastolic 54–96; PULSE 78–104; RESP 16–20; TEMP 35.6–36.6; O2SAT 94–99
[2024-05-17 06:46] LABS: CHLORIDE 106 mEq/L (98-107); POTASSIUM 3.4 mEq/L (3.5-5.1); SODIUM 140 mEq/L (136-145)
[2024-05-17 06:47] LABS: CALCIUM 8.7 mg/dL (8.7-10.4); CARBON DIOXIDE 26 mEq/L (21-32)
[2024-05-17 06:52] LABS: CREATININE 0.8 mg/dL (0.6-1.3); UREA NITROGEN BLOOD 9 mg/dL (9-23)
[2024-05-17 07:15] LABS: BASOPHILS % 0.4 % (0.0-2.0); DIFFERENTIAL COMMENT 0; EOSINOPHILS % 0.8 % (0.0-5.0); HEMATOCRIT. 33.1 % (42.0-52.0); HEMOGLOBIN. 10.6 g/dL (14.0-18.0); LYMPHOCYTES % 11.8 % (20.0-50.0); MEAN CORPUSCULAR HEMOGLOBIN 32.2 pg (28.0-32.0); MEAN CORPUSCULAR VOLUME 100.4 fL (80.0-94.0); MEAN PLATELET VOLUME 7.7 fl (7.4-10.4); MONOCYTES % 6.5 % (2.0-8.0); NEUTROPHILS % 80.5 % (40.0-76.0); PLATELET 258 x1000/uL (130-400); WHITE BLOOD COUNT 7.8 x1000/uL (4.5-11.0)
[2024-05-17 08:12] LABS: GLUCOSE 35 mg/dL (70-105)
[2024-05-17] MEDS ORDERED: VERAPAMIL HCL 2.5 MG/1 ML 2ML VIAL IV ONE (13:01)
[2024-05-17] MEDS ORDERED: HEPARIN 1000 UNITS/ML 10ML ONE (13:01)
[2024-05-17] MEDS ORDERED: IODIXANOL 320MG/ML 100 ML BOTTLE IV ONE (13:01)
[2024-05-17] MEDS ORDERED: LIDOCAINE HCL 1% 20ML VIAL ONE (13:02)
[2024-05-17] MEDS ORDERED: DIPHENHYDRAMINE 50MG/ML VIAL ONE (13:58)
[2024-05-17] MEDS ORDERED: MIDAZOLAM HCL 2 MG/2 ML VIAL ONE (13:59)
[2024-05-17] MEDS ORDERED: FENTANYL CITRATE/PF 50MCG/ML 2ML VIAL ONE (13:59)
[2024-05-17] MEDS ORDERED: ATROPINE SULFATE 1MG/10ML SYR IV PRN (15:15)
[2024-05-17] MEDS: ASPIRIN 81MG TABLET PO SCH (18:52)
[2024-05-17] MEDS: POTASSIUM CHLORIDE 20MEQ/PACKET PO NR (18:52)
[2024-05-17] MEDS: ISOSORBIDE MONONITRATE 30MG TABLET SR 24HR PO SCH (18:52)
[2024-05-17] MEDS: METOPROLOL TARTRATE 25MG TABLET PO SCH (21:25)
[2024-05-17] MEDS: ATORVASTATIN CALCIUM 40MG TABLET PO SCH (21:25)
[2024-05-18] VITALS (10 sets, daily range): BP systolic 82–116; BP diastolic 49–59; PULSE 65–77; RESP 16–20; TEMP 35.9–37.2; O2SAT 95–100
[2024-05-18 06:30] LABS: BASOPHILS % 0.7 % (0.0-2.0); CHLORIDE 105 mEq/L (98-107); EOSINOPHILS % 1.2 % (0.0-5.0); HEMATOCRIT. 30.6 % (42.0-52.0); HEMOGLOBIN. 9.9 g/dL (14.0-18.0); LYMPHOCYTES % 12.2 % (20.0-50.0); MEAN CORPUSCULAR HEMOGLOBIN 32.2 pg (28.0-32.0); MEAN CORPUSCULAR HGB CONC 32.3 g/dL (31.0-37.0); MEAN CORPUSCULAR VOLUME 99.7 fL (80.0-94.0); MEAN PLATELET VOLUME 7.5 fl (7.4-10.4); MONOCYTES % 7.9 % (2.0-8.0); PLATELET 261 x1000/uL (130-400); POTASSIUM 4.5 mEq/L (3.5-5.1); RED BLOOD CELL COUNT 3.06 mill/uL (4.7-6.1); RED CELL DISTRIBUTION WIDTH 16.2 % (11.6-14.6); SODIUM 140 mEq/L (136-145); WHITE BLOOD COUNT 7.4 x1000/uL (4.5-11.0)
[2024-05-18 06:31] LABS: CARBON DIOXIDE 27 mEq/L (21-32)
[2024-05-18 06:32] LABS: CALCIUM 8.8 mg/dL (8.7-10.4)
[2024-05-18 06:36] LABS: CREATININE 1.1 mg/dL (0.6-1.3); UREA NITROGEN BLOOD 11 mg/dL (9-23)
[2024-05-18 06:57] LABS: GLUCOSE 49 mg/dL (70-105)
[2024-05-18] MEDS: CEFTRIAXONE 1GM/50ML 50 ML IV SCH (12:41)
[2024-05-18] MEDS ORDERED: DEXTROSE 50% WATER 50ML SYRINGE IV PRN (17:00)
[2024-05-18] MEDS: BLOOD SUGAR DIAGNOSTIC STRIP TEST SCH (17:20)
[2024-05-18] MEDS: INSULIN LISPRO 100 UNITS/ML SUBCUT SCH (18:10)
[2024-05-19] VITALS (9 sets, daily range): BP systolic 98–130; BP diastolic 54–70; PULSE 71–91; RESP 16–19; TEMP 36.3–37; O2SAT 99–100
[2024-05-19 07:17] LABS: CARBON DIOXIDE 30 mEq/L (21-32); CHLORIDE 105 mEq/L (98-107); POTASSIUM 4.3 mEq/L (3.5-5.1); SODIUM 140 mEq/L (136-145)
[2024-05-19 07:23] LABS: CREATININE 0.9 mg/dL (0.6-1.3); GLUCOSE 124 mg/dL (70-105); UREA NITROGEN BLOOD 11 mg/dL (9-23)
[2024-05-19 07:26] LABS: T4 FREE 0.86 ng/dL (0.89-1.76); THYROID STIMULATING HORMONE 9.78 uIU/mL (0.55-4.78)
[2024-05-19] MEDS ORDERED: APIX5TAB MT (10:06)
[2024-05-19] MEDS ORDERED: AMI2 MT (10:06)
[2024-05-19] MEDS: AMIODARONE 200MG TABLET PO SCH (10:35)
[2024-05-19 11:35] LABS: CALCIUM 8.7 mg/dL (8.7-10.4)
[2024-05-19] MEDS ORDERED: LEVO50TA MT (11:44)
[2024-05-19] MEDS: LEVOTHYROXINE SODIUM 25MCG TABLET PO SCH (22:20)
[2024-05-20] VITALS (9 sets, daily range): BP systolic 98–127; BP diastolic 54–69; PULSE 65–94; RESP 16–20; TEMP 36.2–36.4; O2SAT 96–100
[2024-05-20] MEDS: IPRATROPIUM/ALBUTEROL 0.5-3(2.5)MG/3ML NEB HHN PRN (20:48)
[2024-05-20] MEDS: ACETAMINOPHEN 325MG TABLET PO PRN (21:33)
[2024-05-21] VITALS (11 sets, daily range): BP systolic 105–135; BP diastolic 55–78; PULSE 70–99; RESP 17–24; TEMP 36.1–36.8; O2SAT 89–100
[2024-05-21] MEDS ORDERED: NALOXONE HCL 0.4MG/ML VIAL IV PRN (01:00)
[2024-05-21] MEDS: HYDROCODONE/ACETAMINOPHEN 5/325MG TABLET PO PRN (01:15)
[2024-05-22 03:55] VITALS: BP 124/72; PULSE 84; RESP 20; TEMP 36.9; O2SAT 98
[2024-05-22 05:06] VITALS: PULSE 87; RESP 20
[2024-05-22 07:58] VITALS: BP 123/65; PULSE 86; RESP 18; TEMP 36.6; O2SAT 97
[2024-05-22 08:27] VITALS: PULSE 86
== END 2024-05-22 09:30 | disposition home health service (06) | DRG 286 ==
LOC: ER 17:28 → 5EST 20:32 → EDBEDREQTM 20:55 → EDBEDREQ 20:55 → EDBEDREQSVC 20:55 → 7WST 05-15 23:45
PROVIDERS: ADMIT Internal Medicine; ATTEND Internal Medicine
PROC: 4A023N7 Measurement of Cardiac Sampling and Pressure, Left Heart, Percutaneous Approach (ICD-10-PCS; principal; 2024-05-17)
PROC: B2111ZZ Fluoroscopy of Multiple Coronary Arteries using Low Osmolar Contrast (ICD-10-PCS; 2024-05-17)
PROC: B31H1ZZ Fluoroscopy of Right Upper Extremity Arteries using Low Osmolar Contrast (ICD-10-PCS; 2024-05-17)
DX: I25.110 Atherosclerotic heart disease of native coronary artery with unstable angina pectoris (principal); J96.20 Acute and chronic respiratory failure, unspecified whether with hypoxia or hypercapnia; I48.92 Unspecified atrial flutter; E87.1 Hypo-osmolality and hyponatremia; E87.5 Hyperkalemia; I48.91 Unspecified atrial fibrillation; J44.9 Chronic obstructive pulmonary disease, unspecified; D50.9 Iron deficiency anemia, unspecified; E11.649 Type 2 diabetes mellitus with hypoglycemia without coma; E03.9 Hypothyroidism, unspecified; E78.5 Hyperlipidemia, unspecified; I11.0 Hypertensive heart disease with heart failure; I42.0 Dilated cardiomyopathy; I50.9 Heart failure, unspecified; Z99.81 Dependence on supplemental oxygen; Z98.41 Cataract extraction status, right eye; Z88.2 Allergy status to sulfonamides; Z87.891 Personal history of nicotine dependence
CPT/HCPCS: 36415; 71045; 80048; 80061; 81003; 82024; 82533; 82962; 83036; 83519; 83880; 84439; 84443; 84484; 84681; 85025; 86376; 93005; 93306; 93458; 94070; 94640; 97162; 97167; 99291; A4606; C1725; C1769; C1887; C1893; J0696; J1160; J1200; J1644; J1650; J1815; J2250; J3010; J3490; J7030; J7512; Q9967